=== PATIENT | male | born 1960 | race African-American/Black ===

== ENCOUNTER 2017-09-14 07:55 | Observation (INO) | payer MEDICARE ==
[~2017-09-14] VITALS: Ht 185.4 cm; Wt 86.3 kg
[~2017-09-14 07:55] MED LIST: AMLODIPINE5 MG PO; ASPIRIN CHEWABL81 MG PO; ASPIRIN325 M1 OR; DOXYCYCL HYC100 M1 OR; FISH OIL1200 M1 PO; GLIPIZIDE10 M3 PO; GLIPIZIDE5 MG PO; GLUCOPHAGE500 M1 PO; HYDROCHLORO25 MG/TAB PO; JANUVIA100 MG PO; LIPITOR20 M1 PO; LISINOP/HCTZ1 TAB PO; LISINOPRIL10 MG PO; LISINOPRIL20 MG PO; METFORMIN500 MG PO; NAPROSYN500 MG PO; NAPROXEN DR500 MG PO; NITROSTAT0.4 MG SL; NO MEDS; PREDNISONE20 MG OR; SIMVASTATIN10 MG PO; TORADOL PO; TUSSIONEX1 ML OR; ULTRAM50 M1 PO; VITAMIN B-1250 MCG OR; ZOFRAN ODT4 MG PO
[2017-09-14 08:35] LABS: HEMOGLOBIN 14.4 g/dl (14.0-18.0); IMMATURE GRANULOCYTES 0.2 % (0.0-1.0); MEAN CELL VOLUME 86.4 fL CALC (80.0-100.0); MEAN CORPUSCULAR HGB 28.3 pG CALC (26.0-32.0); MEAN CORPUSCULAR HGB CONC 32.7 g/L CALC (32.0-36.0); NEUT# 2.37 thou/uL (1.82-7.42); RED BLOOD COUNT 5.09 mill/uL (4.70-6.10); RED CELL DISTRI WIDTH 14.3 % (11.5-15.5)
[2017-09-14] MEDS ORDERED: OMEPRAZOLE10 MG PO (08:42)
[2017-09-14] MEDS ORDERED: FISH OIL1000 MG PO (08:42)
[2017-09-14 08:48] LABS: ALBUMIN 4.2 g/dL (3.2-5.0); ALKALINE PHOSPHATASE 118 u/l (38-126); AMYLASE 95 u/l (30-110); ANION GAP 17 (6-22 (CALC)); BILIRUBIN, TOTAL 0.4 mg/dL (0.0-1.4); BUN 18 mg/dL (9-20); BUN/CREATININE RATIO 20 (12-20 (CALC)); CALCIUM 10.5 mg/dL (8.4-10.2); CARBON DIOXIDE 21 mmol/l (22-30); CHLORIDE 107 mmol/l (95-108); CREATININE 0.9 mg/dL (0.7-1.3); GFR > 60 ML/MIN (>=60 (CALC)); GFR FOR AFR.AMER. > 60 ML/MIN (>=60 (CALC)); GLUCOSE 277 mg/dL (75-110); LIPASE 370 u/l (23-300); POTASSIUM 4.2 mmol/l (3.5-5.1); SGOT/AST 39 u/l (17-59); SGPT/ALT 37 u/l (21-72); SODIUM 141 mmol/l (137-146); TOTAL PROTEIN 7.7 g/dL (6.3-8.2)
[2017-09-14 08:57] LABS: MYOGLOBIN 37 ng/mL (0 - 121)
[2017-09-14 11:19] LABS: URINE BILIRUBIN - DIPSTICK NEGATIVE (NEGATIVE); URINE BLOOD DIPSTICK NEGATIVE (NEGATIVE); URINE COLOR YELLOW; URINE GLUCOSE - DIPSTICK >=1000 mg/dL (NEGATIVE); URINE KETONE TRACE mg/dL (NEGATIVE); URINE LEUK ESTERASE NEGATIVE (NEGATIVE); URINE NITRITE - DIPSTICK NEGATIVE (Negative); URINE PROTEIN - DIPSTICK NEGATIVE (NEG-TRACE); URINE SPECIFIC GRAVITY >=1.030; URINE UROBILINOGEN - DIPSTICK 0.2 E.U./dL (0.2)
[2017-09-14 11:20] LABS: URINE CLARITY CLEAR
[2017-09-14 11:59] LABS: COCAINE NEGATIVE (NEGATIVE); METHADONE NEGATIVE (NEGATIVE); TETRAHYDROCANNABIONOL NEGATIVE (NEGATIVE)
[2017-09-14 12:00] LABS: BARBITURATES NEGATIVE (NEGATIVE); OXCYCODONE NEGATIVE (NEGATIVE); TRICYLIC ANTIDEPRESSANTS NEGATIVE (NEGATIVE)
[2017-09-14 13:34] VITALS: BP 135/85
[2017-09-14 16:09] VITALS: BP 143/85
[2017-09-14 21:31] VITALS: BP 153/96
[2017-09-14 23:15] VITALS: BP 129/86
[2017-09-15 03:42] VITALS: BP 135/67
[2017-09-15 05:29] LABS: HEMATOCRIT 43.3 % (39.0-50.0); HEMOGLOBIN 14.4 g/dl (14.0-18.0); IMMATURE GRANULOCYTES 0.2 % (0.0-1.0); MEAN CELL VOLUME 85.6 fL CALC (80.0-100.0); MEAN CORPUSCULAR HGB 28.5 pG CALC (26.0-32.0); MEAN CORPUSCULAR HGB CONC 33.3 g/L CALC (32.0-36.0); NEUT# 2.56 thou/uL (1.82-7.42); RED BLOOD COUNT 5.06 mill/uL (4.70-6.10); RED CELL DISTRI WIDTH 14.3 % (11.5-15.5)
[2017-09-15 06:14] LABS: ANION GAP 15 (6-22 (CALC)); BUN 11 mg/dL (9-20); BUN/CREATININE RATIO 14 (12-20 (CALC)); CALCIUM 9.7 mg/dL (8.4-10.2); CALCULATED LDLCHOLESTEROL 182 mg/dL (62-129 (CALC)); CARBON DIOXIDE 23 mmol/l (22-30); CHLORIDE 105 mmol/l (95-108); CREATININE 0.8 mg/dL (0.7-1.3); GFR > 60 ML/MIN (>=60 (CALC)); GFR FOR AFR.AMER. > 60 ML/MIN (>=60 (CALC)); GLUCOSE 228 mg/dL (75-110); HDL CHOLESTEROL 40 mg/dL (>=40); POTASSIUM 3.9 mmol/l (3.5-5.1); SODIUM 139 mmol/l (137-146); TOTAL CHOLESTEROL 243 mg/dl (0-199); TOTAL TRIGLYCERIDES 102 mg/dl (30-149); VLDL CHOLESTROL 20 mg/dl (8-62 (CALC))
[2017-09-15 08:00] VITALS: BP 144/74
[2017-09-15 11:42] VITALS: BP 123/80
[2017-09-15] MEDS ORDERED: HUMALOG KW100 UNIT/M SC (12:40)
[2017-09-15] MEDS ORDERED: LANTUS SOL100 UNIT/M SC (12:41)
[2017-09-15 15:24] VITALS: BP 114/76
== END 2017-09-15 18:00 | disposition home or self-care (01) ==
LOC: ED 07:55 → ED-I 12:02 → ED 12:35 → MS2 12:36
PROVIDERS: Emergency Medicine; ADMIT Internal Medicine; ATTEND Internal Medicine
DX: H81.10 Benign paroxysmal vertigo, unspecified ear (principal); I16.0 Hypertensive urgency; I10 Essential (primary) hypertension; E11.9 Type 2 diabetes mellitus without complications; E78.5 Hyperlipidemia, unspecified; M19.90 Unspecified osteoarthritis, unspecified site; M62.562 Muscle wasting and atrophy, not elsewhere classified, left lower leg; M62.561 Muscle wasting and atrophy, not elsewhere classified, right lower leg; F10.10 Alcohol abuse, uncomplicated; K85.90 Acute pancreatitis without necrosis or infection, unspecified; R51 Headache; Z87.891 Personal history of nicotine dependence; Z91.14 Patient's other noncompliance with medication regimen; Z79.4 Long term (current) use of insulin

== ENCOUNTER 2018-05-08 08:37 | Emergency (ER) | payer MEDICARE ==
[~2018-05-08] VITALS: Ht 185.4 cm; Wt 80.9 kg
[~2018-05-08 08:37] MED LIST changes: +FISH OIL1000 MG PO; +HUMALOG KW100 UNIT/M SC; +LANTUS SOL100 UNIT/M SC; +OMEPRAZOLE10 MG PO
[2018-05-08] MEDS ORDERED: ATORVASTATIN CA20 MG PO (09:05)
[2018-05-08] MEDS ORDERED: CELEBREX100 MG PO (09:06)
[2018-05-08] MEDS ORDERED: CYCLOBENZAPR5 MG PO (09:06)
[2018-05-08] MEDS ORDERED: JANUVIA100 MG PO (09:06)
[2018-05-08 09:18] LABS: HEMATOCRIT 42.7 % (39.0-50.0); HEMOGLOBIN 13.8 g/dl (14.0-18.0); IMMATURE GRANULOCYTES 0.3 % (0.0-5.0); MEAN CELL VOLUME 85.7 fL CALC (80.0-100.0); MEAN CORPUSCULAR HGB 27.7 pG CALC (26.0-32.0); MEAN CORPUSCULAR HGB CONC 32.3 g/L CALC (32.0-36.0); NEUT# 3.39 thou/uL (1.82-7.42); RED BLOOD COUNT 4.98 mill/uL (4.70-6.10); RED CELL DISTRI WIDTH 14.5 % (11.5-15.5)
[2018-05-08 09:19] LABS: URINE BILIRUBIN - DIPSTICK NEGATIVE (NEGATIVE); URINE BLOOD DIPSTICK NEGATIVE (NEGATIVE); URINE CLARITY CLEAR; URINE COLOR YELLOW; URINE GLUCOSE - DIPSTICK NEGATIVE (NEGATIVE); URINE KETONE NEGATIVE (NEGATIVE); URINE LEUK ESTERASE NEGATIVE (NEGATIVE); URINE NITRITE - DIPSTICK NEGATIVE (Negative); URINE PROTEIN - DIPSTICK NEGATIVE (NEG-TRACE); URINE SPECIFIC GRAVITY 1.025
[2018-05-08 09:29] LABS: ALBUMIN 3.6 g/dL (3.2-5.0); ALKALINE PHOSPHATASE 115 u/l (38-126); ANION GAP 14 (6-22 (CALC)); BILIRUBIN, TOTAL 0.4 mg/dL (0.0-1.4); BUN 16 mg/dL (9-20); BUN/CREATININE RATIO 22 (12-20 (CALC)); CARBON DIOXIDE 25 mmol/l (22-30); CHLORIDE 106 mmol/l (95-108); CREATININE 0.7 mg/dL (0.7-1.3); GFR > 60 ML/MIN (>=60 (CALC)); GFR FOR AFR.AMER. > 60 ML/MIN (>=60 (CALC)); LIPASE 185 u/l (23-300); POTASSIUM 4.3 mmol/l (3.5-5.1); SGOT/AST 39 u/l (17-59); SGPT/ALT 34 u/l (21-72); SODIUM 140 mmol/l (137-146)
[2018-05-08 09:32] LABS: INTERNATIONAL NORMALIZED RATIO 0.9 RATIO (0.7-1.3); PROTHROMBIN TIME 10.5 SECONDS (9.0-12.5)
[2018-05-08 11:47] VITALS: BP 152/80
== END 2018-05-08 11:46 | disposition short-term general hospital (02) ==
LOC: ED 08:37
PROVIDERS: Family Medicine
DX: K56.609 Unspecified intestinal obstruction, unspecified as to partial versus complete obstruction (principal); R19.5 Other fecal abnormalities; M19.90 Unspecified osteoarthritis, unspecified site; E11.9 Type 2 diabetes mellitus without complications; I10 Essential (primary) hypertension

== ENCOUNTER 2018-12-31 22:17 | Emergency (ER) | payer MEDICARE ==
[~2018-12-31] VITALS: Ht 185.4 cm; Wt 83.1 kg
[~2018-12-31 22:17] MED LIST changes: +ATORVASTATIN CA20 MG PO; +CELEBREX100 MG PO; +CYCLOBENZAPR5 MG PO
[2018-12-31 22:55] LABS: HEMATOCRIT 40.8 % (39.0-50.0); HEMOGLOBIN 13.5 g/dl (14.0-18.0); IMMATURE GRANULOCYTES 0.3 % (0.0-5.0); MEAN CELL VOLUME 85.7 fL CALC (80.0-100.0); MEAN CORPUSCULAR HGB 28.4 pG CALC (26.0-32.0); MEAN CORPUSCULAR HGB CONC 33.1 g/L CALC (32.0-36.0); NEUT# 3.67 thou/uL (1.82-7.42); RED BLOOD COUNT 4.76 mill/uL (4.70-6.10); RED CELL DISTRI WIDTH 13.5 % (11.5-15.5)
[2018-12-31 23:11] LABS: ALBUMIN 4.1 g/dL (3.2-5.0); ALKALINE PHOSPHATASE 111 u/l (38-126); ANION GAP 14 (6-22 (CALC)); BILIRUBIN, TOTAL 0.3 mg/dL (0.0-1.4); BUN 15 mg/dL (9-20); BUN/CREATININE RATIO 20 (12-20 (CALC)); CARBON DIOXIDE 24 mmol/l (22-30); CHLORIDE 103 mmol/l (95-108); CREATININE 0.7 mg/dL (0.7-1.3); GFR > 60 ML/MIN (>=60 (CALC)); GFR FOR AFR.AMER. > 60 ML/MIN (>=60 (CALC)); POTASSIUM 4.1 mmol/l (3.5-5.1); SGOT/AST 27 u/l (17-59); SODIUM 137 mmol/l (137-146); TOTAL PROTEIN 7.9 g/dL (6.3-8.2)
[2018-12-31 23:14] LABS: INTERNATIONAL NORMALIZED RATIO 0.9 RATIO (0.7-1.3); PROTHROMBIN TIME 9.8 SECONDS (9.0-12.5)
[2019-01-01 01:45] VITALS: BP 141/68
== END 2019-01-01 01:45 | disposition left against medical advice (07) ==
LOC: ED 22:17
PROVIDERS: Emergency Medicine
DX: R04.2 Hemoptysis (principal); E11.9 Type 2 diabetes mellitus without complications; I10 Essential (primary) hypertension; Z91.19 Patient's noncompliance with other medical treatment and regimen; R07.9 Chest pain, unspecified
CPT/HCPCS: Q9967

== ENCOUNTER 2019-05-29 17:04 | Emergency (ER) | payer MEDICARE ==
[~2019-05-29] VITALS: Ht 185.4 cm; Wt 62.0 kg
[2019-05-29 18:06] LABS: HEMATOCRIT 40.1 % (39.0-50.0); HEMOGLOBIN 13.1 g/dl (14.0-18.0); IMMATURE GRANULOCYTES 0.3 % (0.0-5.0); MEAN CELL VOLUME 81.3 fL CALC (80.0-100.0); MEAN CORPUSCULAR HGB 26.6 pG CALC (26.0-32.0); MEAN CORPUSCULAR HGB CONC 32.7 g/L CALC (32.0-36.0); NEUT# 4.62 thou/uL (1.82-7.42); RED BLOOD COUNT 4.93 mill/uL (4.70-6.10); RED CELL DISTRI WIDTH 14.5 % (11.5-15.5)
[2019-05-29] MEDS ORDERED: LORTAB 1010 MG PO (18:20)
[2019-05-29] MEDS ORDERED: VITAMIN D31000 UNI1 PO (18:21)
[2019-05-29 18:28] LABS: ACT PARTIAL THROMBO TIME 28.9 SECONDS (20.0-32.5); INTERNATIONAL NORMALIZED RATIO 1.1 RATIO (0.7-1.3); PROTHROMBIN TIME 11.1 SECONDS (9.0-12.5)
[2019-05-29 18:59] LABS: ALBUMIN 4.3 g/dL (3.2-5.0); ALKALINE PHOSPHATASE 117 u/l (38-126); ANION GAP 14 (6-22 (CALC)); BUN 14 mg/dL (8-23); BUN/CREATININE RATIO 22 (12-20 (CALC)); CARBON DIOXIDE 27 mmol/l (22-30); CHLORIDE 99 mmol/l (95-108); CREATININE 0.7 mg/dL (0.7-1.3); GFR > 60 ML/MIN (>=60 (CALC)); GFR FOR AFR.AMER. > 60 ML/MIN (>=60 (CALC)); LIPASE 55 u/l (23-300); POTASSIUM 4.6 mmol/l (3.5-5.1); SGOT/AST 34 u/l (19-48); SODIUM 135 mmol/l (137-146); TOTAL PROTEIN 9.3 g/dL (6.3-8.2)
[2019-05-29 19:01] LABS: BILIRUBIN, TOTAL 0.6 mg/dL (0.0-1.4)
[2019-05-29 22:49] LABS: URINE BILIRUBIN - DIPSTICK NEGATIVE (NEGATIVE); URINE BLOOD DIPSTICK NEGATIVE (NEGATIVE); URINE COLOR YELLOW; URINE GLUCOSE - DIPSTICK NEGATIVE (NEGATIVE); URINE KETONE NEGATIVE (NEGATIVE); URINE LEUK ESTERASE NEGATIVE (NEGATIVE); URINE NITRITE - DIPSTICK NEGATIVE (Negative); URINE PROTEIN - DIPSTICK NEGATIVE (NEG-TRACE); URINE SPECIFIC GRAVITY 1.015; URINE UROBILINOGEN - DIPSTICK 0.2 E.U./dL (0.2)
[2019-05-29] MEDS ORDERED: AMITRIPTYLIN50 MG PO (23:03)
[2019-05-29 23:40] VITALS: BP 164/90
== END 2019-05-29 23:40 | disposition home or self-care (01) ==
LOC: ED 17:04
PROC: 0T9B70Z Drainage of Bladder with Drainage Device, Via Natural or Artificial Opening (ICD-10-PCS; principal; 2019-05-29)
DX: R53.1 Weakness (principal); C34.92 Malignant neoplasm of unspecified part of left bronchus or lung; C79.31 Secondary malignant neoplasm of brain; G47.00 Insomnia, unspecified; E11.9 Type 2 diabetes mellitus without complications; I10 Essential (primary) hypertension; Z79.4 Long term (current) use of insulin

== ENCOUNTER 2019-07-03 20:22 | Emergency (ER) | payer MEDICARE ==
[~2019-07-03] VITALS: Ht 185.4 cm; Wt 65.0 kg
[~2019-07-03 20:22] MED LIST changes: +AMITRIPTYLIN50 MG PO; +LORTAB 1010 MG PO; +VITAMIN D31000 UNI1 PO
[2019-07-03 21:29] LABS: HEMATOCRIT 37.6 % (39.0-50.0); HEMOGLOBIN 12.2 g/dl (14.0-18.0); IMMATURE GRANULOCYTES 0.3 % (0.0-5.0); MEAN CELL VOLUME 82.1 fL CALC (80.0-100.0); MEAN CORPUSCULAR HGB 26.6 pG CALC (26.0-32.0); MEAN CORPUSCULAR HGB CONC 32.4 g/L CALC (32.0-36.0); NEUT# 5.22 thou/uL (1.82-7.42); RED BLOOD COUNT 4.58 mill/uL (4.70-6.10); RED CELL DISTRI WIDTH 15.7 % (11.5-15.5)
[2019-07-03 21:47] LABS: ALBUMIN 3.7 g/dL (3.2-5.0); ALKALINE PHOSPHATASE 118 u/l (38-126); ANION GAP 14 (6-22 (CALC)); BILIRUBIN, TOTAL 0.4 mg/dL (0.0-1.4); BUN 18 mg/dL (8-23); BUN/CREATININE RATIO 24 (12-20 (CALC)); CARBON DIOXIDE 23 mmol/l (22-30); CHLORIDE 103 mmol/l (95-108); CREATININE 0.8 mg/dL (0.7-1.3); GFR > 60 ML/MIN (>=60 (CALC)); GFR FOR AFR.AMER. > 60 ML/MIN (>=60 (CALC)); POTASSIUM 4.2 mmol/l (3.5-5.1); SGOT/AST 26 u/l (19-48); SODIUM 135 mmol/l (137-146); TOTAL PROTEIN 7.7 g/dL (6.3-8.2)
[2019-07-04 00:48] LABS: URINE BILIRUBIN - DIPSTICK NEGATIVE (NEGATIVE); URINE BLOOD DIPSTICK NEGATIVE (NEGATIVE); URINE COLOR YELLOW; URINE GLUCOSE - DIPSTICK 100 mg/dL (NEGATIVE); URINE KETONE NEGATIVE (NEGATIVE); URINE LEUK ESTERASE NEGATIVE (NEGATIVE); URINE NITRITE - DIPSTICK NEGATIVE (Negative); URINE PH 6.5 (4.5-8.0); URINE PROTEIN - DIPSTICK NEGATIVE (NEG-TRACE); URINE UROBILINOGEN - DIPSTICK 0.2 E.U./dL (0.2)
[2019-07-04 00:52] LABS: BARBITURATES NEGATIVE (NEGATIVE); COCAINE NEGATIVE (NEGATIVE); METHADONE NEGATIVE (NEGATIVE); OXCYCODONE NEGATIVE (NEGATIVE); TETRAHYDROCANNABIONOL NEGATIVE (NEGATIVE); TRICYLIC ANTIDEPRESSANTS NEGATIVE (NEGATIVE)
[2019-07-04 02:10] VITALS: BP 163/87
== END 2019-07-04 02:10 | disposition home or self-care (01) ==
LOC: ED 20:22
PROVIDERS: Emergency Medicine
DX: R41.0 Disorientation, unspecified (principal); W18.39XA Other fall on same level, initial encounter; Y92.012 Bathroom of single-family (private) house as the place of occurrence of the external cause; C34.90 Malignant neoplasm of unspecified part of unspecified bronchus or lung; J40 Bronchitis, not specified as acute or chronic